=== PATIENT | male | born 1945 | race Caucasian/White ===

== ENCOUNTER 2016-07-12 18:29 | Emergency (ER) | payer OTHER ==
[~2016-07-12] VITALS: Ht 165.1 cm; Wt 77.1 kg
[2016-07-12 18:46] VITALS: BP 129/77
== END 2016-07-12 21:00 | disposition home or self-care (01) ==
LOC: ED 18:29
DX: M25.562 Pain in left knee (principal); E11.9 Type 2 diabetes mellitus without complications; N40.0 Benign prostatic hyperplasia without lower urinary tract symptoms; Z79.84 Long term (current) use of oral hypoglycemic drugs

== ENCOUNTER 2018-12-15 15:51 | Emergency (ER) | payer OTHER ==
[~2018-12-15] VITALS: Ht 165.1 cm; Wt 74.8 kg
[2018-12-15 15:58] VITALS: Ht 165.1 cm; Wt 74.8 kg
[2018-12-15 18:47] VITALS: BP 146/71
== END 2018-12-15 18:30 | disposition home or self-care (01) ==
LOC: ED 15:51
DX: M25.551 Pain in right hip (principal); I10 Essential (primary) hypertension; E11.9 Type 2 diabetes mellitus without complications; E78.00 Pure hypercholesterolemia, unspecified; F17.210 Nicotine dependence, cigarettes, uncomplicated; Z98.890 Other specified postprocedural states